=== PATIENT | male | born 1960 | race Caucasian/White ===

== ENCOUNTER 2016-10-27 13:16 | Emergency (ER) | payer OTHER ==
[~2016-10-27] VITALS: Ht 172.7 cm; Wt 88.6 kg
[~2016-10-27 13:16] MED LIST: ALLO300 PO; ATEN25 PO; METF500T4 PO
[2016-10-27 13:27] LABS: GLUCOSE,POINT OF CARE 168 MG/DL (70-110)
[2016-10-27] MEDS ORDERED: CloNIDine HCL 0.2 MG TABLET PO ONE (13:45)
[2016-10-27 13:54] VITALS: BP 153/103
[2016-10-27] MEDS ORDERED: ACETAMINOPHEN 325 MG TABLET PO ONE (14:00)
== END 2016-10-27 14:09 | disposition left against medical advice (07) ==
LOC: EMS 13:18
DX: I10 Essential (primary) hypertension (principal); E11.9 Type 2 diabetes mellitus without complications; F17.210 Nicotine dependence, cigarettes, uncomplicated
CPT/HCPCS: 82962; 93005; 99285

== ENCOUNTER 2016-12-22 03:02 | Emergency (ER) | payer OTHER ==
[~2016-12-22] VITALS: Ht 172.7 cm; Wt 72.5 kg
[~2016-12-22 03:02] MED LIST changes: -ATEN25 PO; +ATEN25TA PO
[2016-12-22] MEDS ORDERED: AMIO200T2 PO (03:21)
[2016-12-22] MEDS ORDERED: ASPI-1107 PO (03:21)
[2016-12-22] MEDS ORDERED: LISI-622 PO (03:21)
[2016-12-22] MEDS ORDERED: ATOR-2 PO (03:21)
[2016-12-22] MEDS ORDERED: ATEN50TA PO (03:21)
[2016-12-22] MEDS ORDERED: CLOP75TA32 PO (03:21)
[2016-12-22] MEDS ORDERED: CARV6.2534 PO (03:21)
[2016-12-22] MEDS ORDERED: GLIP5TAB11 PO (03:21)
[2016-12-22 03:27] LABS: GLUCOSE,POINT OF CARE 153 MG/DL (70-110)
[2016-12-22 04:43] VITALS: BP 136/81
== END 2016-12-22 04:44 | disposition home or self-care (01) ==
LOC: EMS 03:04
DX: Z76.0 Encounter for issue of repeat prescription (principal); R42 Dizziness and giddiness; E11.9 Type 2 diabetes mellitus without complications; I10 Essential (primary) hypertension; F17.210 Nicotine dependence, cigarettes, uncomplicated
CPT/HCPCS: 82962; 99283

== ENCOUNTER 2017-02-18 02:12 | Emergency (ER) | payer OTHER ==
[~2017-02-18] VITALS: Ht 175.3 cm; Wt 87.3 kg
[~2017-02-18 02:12] MED LIST changes: +AMIO200T2 PO; +ASPI-1107 PO; +ATEN50TA PO; +ATOR-2 PO; +CARV6.2534 PO; +CLOP75TA32 PO; +GLIP5TAB11 PO; +LISI-622 PO
[2017-02-18 02:28] LABS: GLUCOSE,POINT OF CARE 190 MG/DL (70-110)
[2017-02-18 03:57] VITALS: BP 145/87
== END 2017-02-18 04:00 | disposition home or self-care (01) ==
LOC: EMS 02:13
DX: Z76.0 Encounter for issue of repeat prescription (principal); F17.210 Nicotine dependence, cigarettes, uncomplicated; I10 Essential (primary) hypertension; E11.9 Type 2 diabetes mellitus without complications; I51.9 Heart disease, unspecified; F12.10 Cannabis abuse, uncomplicated; M10.9 Gout, unspecified
CPT/HCPCS: 82962; 99283; 99406

== ENCOUNTER 2017-03-05 00:27 | Emergency (ER) | payer OTHER ==
[~2017-03-05] VITALS: Ht 172.7 cm; Wt 86.4 kg
[~2017-03-05 00:27] MED LIST changes: -ASPI-1107 PO; -ATEN50TA PO
[2017-03-05 00:47] LABS: GLUCOSE,POINT OF CARE 118 MG/DL (70-110)
[2017-03-05] MEDS ORDERED: AMIODARONE HCL 200 MG TABLET PO ONE (01:30)
[2017-03-05] MEDS ORDERED: CLOPIDOGREL BISULFATE 75 MG TABLET PO ONE (01:30)
[2017-03-05 03:11] VITALS: BP 136/82
== END 2017-03-05 03:13 | disposition home or self-care (01) ==
LOC: EDUNIT# 00:27 → EMS 00:30
DX: M54.10 Radiculopathy, site unspecified (principal); R42 Dizziness and giddiness; E11.9 Type 2 diabetes mellitus without complications; I11.9 Hypertensive heart disease without heart failure; F17.210 Nicotine dependence, cigarettes, uncomplicated
CPT/HCPCS: 82962; 93005; 99283

== ENCOUNTER 2017-03-31 04:46 | Emergency (ER) | payer OTHER ==
[~2017-03-31] VITALS: Ht 172.7 cm; Wt 84.5 kg
[2017-03-31 05:03] LABS: GLUCOSE,POINT OF CARE 162 MG/DL (70-110)
[2017-03-31 06:20] VITALS: BP 146/68
== END 2017-03-31 07:03 | disposition home or self-care (01) ==
LOC: EMS 04:46
DX: J40 Bronchitis, not specified as acute or chronic (principal); F17.210 Nicotine dependence, cigarettes, uncomplicated; E11.9 Type 2 diabetes mellitus without complications; I10 Essential (primary) hypertension; Z71.6 Tobacco abuse counseling; Z79.899 Other long term (current) drug therapy
CPT/HCPCS: 82962; 99282; 99406

== ENCOUNTER 2017-05-24 23:55 | Emergency (ER) | payer OTHER ==
[~2017-05-24] VITALS: Ht 175.3 cm; Wt 86.0 kg
[2017-05-25 00:12] LABS: GLUCOSE,POINT OF CARE 167 MG/DL (70-110)
[2017-05-25 00:22] VITALS: BP 153/101
[2017-05-25] MEDS ORDERED: LISINOPRIL 10 MG TABLET PO ONE (00:45)
[2017-05-25] MEDS ORDERED: MetFORMIN HCL 500 MG TABLET PO ONE (00:45)
[2017-05-25] MEDS ORDERED: CLOPIDOGREL BISULFATE 75 MG TABLET PO ONE (00:45)
== END 2017-05-25 01:15 | disposition home or self-care (01) ==
LOC: EMS 23:56
DX: Z76.0 Encounter for issue of repeat prescription (principal); I10 Essential (primary) hypertension; E11.9 Type 2 diabetes mellitus without complications; I25.2 Old myocardial infarction; M10.9 Gout, unspecified; Z79.84 Long term (current) use of oral hypoglycemic drugs; F17.210 Nicotine dependence, cigarettes, uncomplicated
CPT/HCPCS: 82962; 99284

== ENCOUNTER 2017-06-02 20:28 | Emergency (ER) | payer OTHER | END 2017-06-02 21:00 | disposition left against medical advice (07) | LOC: EMS 20:28 | DX: Z53.21 Procedure and treatment not carried out due to patient leaving prior to being seen by health care provider (principal) ==

== ENCOUNTER 2017-07-16 03:45 | Emergency (ER) | payer OTHER ==
[~2017-07-16] VITALS: Ht 172.7 cm; Wt 84.1 kg
[2017-07-16 04:16] VITALS: BP 134/82
[2017-07-16 04:53] LABS: GLUCOSE,POINT OF CARE 131 MG/DL (70-110)
== END 2017-07-16 04:57 | disposition home or self-care (01) ==
LOC: EMS 03:46
DX: I10 Essential (primary) hypertension (principal); E11.9 Type 2 diabetes mellitus without complications; M10.9 Gout, unspecified; Z76.0 Encounter for issue of repeat prescription; F17.210 Nicotine dependence, cigarettes, uncomplicated; Z79.84 Long term (current) use of oral hypoglycemic drugs
CPT/HCPCS: 82962; 99283

== ENCOUNTER 2017-07-18 02:25 | Emergency (ER) | payer OTHER ==
[~2017-07-18] VITALS: Ht 172.7 cm; Wt 80.0 kg
[2017-07-18 03:02] VITALS: BP 157/98
[2017-07-18] MEDS ORDERED: METO-558 PO (03:02)
[2017-07-18 03:22] LABS: GLUCOSE,POINT OF CARE 125 MG/DL (70-110)
== END 2017-07-18 05:18 | disposition left against medical advice (07) ==
LOC: EMS 02:26
DX: Z76.0 Encounter for issue of repeat prescription (principal); E11.9 Type 2 diabetes mellitus without complications; I11.9 Hypertensive heart disease without heart failure; F17.210 Nicotine dependence, cigarettes, uncomplicated; Z53.21 Procedure and treatment not carried out due to patient leaving prior to being seen by health care provider
CPT/HCPCS: 82962

== ENCOUNTER 2017-07-30 02:59 | Emergency (ER) | payer OTHER ==
[~2017-07-30] VITALS: Ht 172.7 cm; Wt 82.7 kg
[~2017-07-30 02:59] MED LIST changes: -AMIO200T2 PO; -ATEN25TA PO; -CARV6.2534 PO; -CLOP75TA32 PO; -GLIP5TAB11 PO; -LISI-622 PO; -METF500T4 PO; +METF500T6 PO; +METO-558 PO
[2017-07-30 03:17] LABS: GLUCOSE,POINT OF CARE 185 MG/DL (70-110)
[2017-07-30 03:34] VITALS: BP 127/73
[2017-07-30] MEDS ORDERED: HYDROCODONE/ACETAMINOPHEN 5-325 MG TABLET PO ONE (03:45)
[2017-07-30] MEDS ORDERED: IBUPROFEN 600 MG TABLET PO ONE (03:45)
== END 2017-07-30 04:17 | disposition home or self-care (01) ==
LOC: EMS 02:59
DX: S39.012A Strain of muscle, fascia and tendon of lower back, initial encounter (principal); S86.911A Strain of unspecified muscle(s) and tendon(s) at lower leg level, right leg, initial encounter; E11.9 Type 2 diabetes mellitus without complications; I11.9 Hypertensive heart disease without heart failure; F17.210 Nicotine dependence, cigarettes, uncomplicated; X58.XXXA Exposure to other specified factors, initial encounter; Y93.89 Activity, other specified; Y92.89 Other specified places as the place of occurrence of the external cause; Y99.8 Other external cause status
CPT/HCPCS: 29530; 82962; 99283; 99406

== ENCOUNTER 2017-08-02 06:21 | Emergency (ER) | payer OTHER ==
[~2017-08-02] VITALS: Ht 172.7 cm; Wt 82.0 kg
[~2017-08-02 06:21] MED LIST changes: -METO-558 PO
[2017-08-02] MEDS ORDERED: HYDR-309 PO (06:24)
[2017-08-02] MEDS ORDERED: IBUP-2070 PO (06:24)
[2017-08-02 07:58] VITALS: BP 154/102
== END 2017-08-02 08:06 | disposition home or self-care (01) ==
LOC: EMS 06:22
DX: M25.561 Pain in right knee (principal); G89.29 Other chronic pain; E11.9 Type 2 diabetes mellitus without complications; I11.9 Hypertensive heart disease without heart failure; F17.210 Nicotine dependence, cigarettes, uncomplicated; Z76.0 Encounter for issue of repeat prescription
CPT/HCPCS: 99282; 99406

== ENCOUNTER 2018-02-08 23:51 | Emergency (ER) | payer OTHER ==
[~2018-02-08] VITALS: Ht 172.7 cm; Wt 82.7 kg
[~2018-02-08 23:51] MED LIST changes: +HYDR-309 PO; +IBUP-2070 PO; +METF-960 PO; -METF500T6 PO
[2018-02-09] MEDS ORDERED: CLOP75 PO
[2018-02-09] MEDS ORDERED: INDOMETHACIN 25 MG CAPSULE PO ONE (02:00)
[2018-02-09 02:43] VITALS: BP 145/85
[2018-02-12 10:58] LABS: GLUCOSE,POINT OF CARE 191 MG/DL (70-110)
== END 2018-02-09 02:55 | disposition home or self-care (01) ==
LOC: EMS 23:53
DX: M10.9 Gout, unspecified (principal); I10 Essential (primary) hypertension; E78.00 Pure hypercholesterolemia, unspecified; E11.9 Type 2 diabetes mellitus without complications; F17.210 Nicotine dependence, cigarettes, uncomplicated; Z79.84 Long term (current) use of oral hypoglycemic drugs

== ENCOUNTER 2018-02-12 22:28 | Emergency (ER) | payer OTHER ==
[~2018-02-12] VITALS: Ht 167.6 cm; Wt 82.7 kg
[~2018-02-12 22:28] MED LIST changes: +CLOP75 PO; -HYDR-309 PO
[2018-02-12 23:45] VITALS: BP 159/87
[2018-02-13] MEDS ORDERED: COLCHICINE 0.6 MG TABLET PO ONE (00:15)
[2018-02-13] MEDS ORDERED: IBUPROFEN 800 MG TABLET PO ONE (00:15)
== END 2018-02-13 01:14 | disposition home or self-care (01) ==
LOC: EMS 22:28
DX: M10.9 Gout, unspecified (principal); E11.65 Type 2 diabetes mellitus with hyperglycemia; F17.210 Nicotine dependence, cigarettes, uncomplicated; I25.10 Atherosclerotic heart disease of native coronary artery without angina pectoris; I11.9 Hypertensive heart disease without heart failure; E78.00 Pure hypercholesterolemia, unspecified; Z59.0 Homelessness; Z79.84 Long term (current) use of oral hypoglycemic drugs
CPT/HCPCS: 99406

== ENCOUNTER 2018-02-20 04:10 | Emergency (ER) | payer OTHER ==
[~2018-02-20] VITALS: Ht 172.7 cm; Wt 83.0 kg
[2018-02-20] MEDS ORDERED: ATOR40TA28 PO (04:27)
[2018-02-20 04:29] LABS: GLUCOSE,POINT OF CARE 176 MG/DL (70-110)
[2018-02-20 06:25] VITALS: BP 149/92
== END 2018-02-20 06:50 | disposition home or self-care (01) ==
LOC: EMS 04:12
DX: S46.911A Strain of unspecified muscle, fascia and tendon at shoulder and upper arm level, right arm, initial encounter (principal); I25.10 Atherosclerotic heart disease of native coronary artery without angina pectoris; E11.9 Type 2 diabetes mellitus without complications; I11.9 Hypertensive heart disease without heart failure; E78.00 Pure hypercholesterolemia, unspecified; I25.2 Old myocardial infarction; F17.210 Nicotine dependence, cigarettes, uncomplicated; Z79.84 Long term (current) use of oral hypoglycemic drugs; X58.XXXA Exposure to other specified factors, initial encounter; Y93.89 Activity, other specified; Y92.89 Other specified places as the place of occurrence of the external cause; Y99.8 Other external cause status

== ENCOUNTER 2018-04-10 15:42 | Emergency (ER) | payer OTHER ==
[~2018-04-10] VITALS: Ht 172.7 cm; Wt 86.4 kg
[~2018-04-10 15:42] MED LIST changes: -ALLO300 PO; -ATOR-2 PO; +ATOR40TA28 PO
[2018-04-10 15:45] VITALS: BP 151/95
[2018-04-10 15:59] LABS: GLUCOSE,POINT OF CARE 275 MG/DL (70-110)
== END 2018-04-10 17:09 | disposition left against medical advice (07) ==
LOC: EMS 15:43
DX: M25.522 Pain in left elbow (principal); Z53.21 Procedure and treatment not carried out due to patient leaving prior to being seen by health care provider

== ENCOUNTER 2018-05-13 11:26 | Emergency (ER) | payer OTHER ==
[~2018-05-13] VITALS: Ht 172.7 cm; Wt 81.8 kg
[~2018-05-13 11:26] MED LIST changes: -CLOP75 PO; +CLOP75TA17 PO
[2018-05-13 11:34] VITALS: BP 159/100
[2018-05-13 11:44] LABS: GLUCOSE,POINT OF CARE 181 MG/DL (70-110)
== END 2018-05-13 12:45 | disposition left against medical advice (07) ==
LOC: EMS 11:26
DX: Z76.0 Encounter for issue of repeat prescription (principal); I25.10 Atherosclerotic heart disease of native coronary artery without angina pectoris; E11.9 Type 2 diabetes mellitus without complications; I11.9 Hypertensive heart disease without heart failure; I25.2 Old myocardial infarction; F17.210 Nicotine dependence, cigarettes, uncomplicated; Z53.21 Procedure and treatment not carried out due to patient leaving prior to being seen by health care provider

== ENCOUNTER 2018-05-13 16:09 | Emergency (ER) | payer OTHER ==
[~2018-05-13] VITALS: Ht 172.7 cm; Wt 81.8 kg
[2018-05-13] MEDS ORDERED: ATORVASTATIN CALCIUM 40 MG TABLET PO ONE (17:00)
[2018-05-13] MEDS ORDERED: CLOPIDOGREL BISULFATE 75 MG TABLET PO ONE (17:00)
[2018-05-13 17:29] VITALS: BP 156/109
== END 2018-05-13 17:50 | disposition home or self-care (01) ==
LOC: EMS 16:11
DX: Z76.0 Encounter for issue of repeat prescription (principal); F17.210 Nicotine dependence, cigarettes, uncomplicated; I25.10 Atherosclerotic heart disease of native coronary artery without angina pectoris; E11.9 Type 2 diabetes mellitus without complications; I11.9 Hypertensive heart disease without heart failure; I25.2 Old myocardial infarction; E78.00 Pure hypercholesterolemia, unspecified; Z79.84 Long term (current) use of oral hypoglycemic drugs
CPT/HCPCS: 99406

== ENCOUNTER 2018-05-18 18:08 | Emergency (ER) | payer OTHER ==
[~2018-05-18] VITALS: Ht 170.2 cm; Wt 84.1 kg
[2018-05-18] MEDS ORDERED: ALLO100T PO (18:54)
[2018-05-18] MEDS ORDERED: CloNIDine HCL 0.2 MG TABLET PO ONE (20:30)
[2018-05-18 20:53] LABS: GLUCOSE,POINT OF CARE 218 MG/DL (70-110)
[2018-05-18 21:29] VITALS: BP 186/104
== END 2018-05-18 21:45 | disposition home or self-care (01) ==
LOC: EMS 18:11
DX: M10.9 Gout, unspecified (principal); E11.65 Type 2 diabetes mellitus with hyperglycemia; I11.9 Hypertensive heart disease without heart failure; I25.10 Atherosclerotic heart disease of native coronary artery without angina pectoris; I25.2 Old myocardial infarction; E78.00 Pure hypercholesterolemia, unspecified; F17.210 Nicotine dependence, cigarettes, uncomplicated; Z79.84 Long term (current) use of oral hypoglycemic drugs

== ENCOUNTER 2018-05-26 06:14 | Emergency (ER) | payer OTHER ==
[~2018-05-26] VITALS: Ht 172.7 cm; Wt 81.8 kg
[~2018-05-26 06:14] MED LIST changes: +ALLO100T PO; -CLOP75TA17 PO; +CLOP75TA3 PO
[2018-05-26 06:49] LABS: GLUCOSE,POINT OF CARE 184 MG/DL (70-110)
[2018-05-26] MEDS ORDERED: KETOROLAC TROMETHAMINE 60 MG/2 ML VIAL IM ONE (07:45)
[2018-05-26] MEDS ORDERED: CloNIDine HCL 0.1 MG TABLET PO ONE (08:00)
[2018-05-26 08:48] VITALS: BP 149/98
== END 2018-05-26 09:31 | disposition home or self-care (01) ==
LOC: EMS 06:14
DX: S39.012A Strain of muscle, fascia and tendon of lower back, initial encounter (principal); I10 Essential (primary) hypertension; G89.29 Other chronic pain; F17.210 Nicotine dependence, cigarettes, uncomplicated; I25.10 Atherosclerotic heart disease of native coronary artery without angina pectoris; I11.9 Hypertensive heart disease without heart failure; E11.9 Type 2 diabetes mellitus without complications; E78.00 Pure hypercholesterolemia, unspecified; I25.2 Old myocardial infarction; Z79.84 Long term (current) use of oral hypoglycemic drugs; X50.1XXA Overexertion from prolonged static or awkward postures, initial encounter; Y93.89 Activity, other specified; Y92.89 Other specified places as the place of occurrence of the external cause; Y99.8 Other external cause status
CPT/HCPCS: 82962; 96372; 99283; 99406; J1885

== ENCOUNTER 2018-06-17 01:49 | Emergency (ER) | payer OTHER ==
[~2018-06-17] VITALS: Ht 172.7 cm; Wt 87.3 kg
[2018-06-17 01:52] VITALS: BP 157/108
[2018-06-17 02:18] LABS: GLUCOSE,POINT OF CARE 145 MG/DL (70-110)
== END 2018-06-17 04:12 | disposition home or self-care (01) ==
LOC: EMS 01:49
DX: E11.9 Type 2 diabetes mellitus without complications (principal); I25.2 Old myocardial infarction; E78.00 Pure hypercholesterolemia, unspecified; I11.9 Hypertensive heart disease without heart failure; I25.10 Atherosclerotic heart disease of native coronary artery without angina pectoris; Z76.0 Encounter for issue of repeat prescription; Z79.84 Long term (current) use of oral hypoglycemic drugs; Z79.01 Long term (current) use of anticoagulants; Z79.899 Other long term (current) drug therapy

== ENCOUNTER 2019-01-01 00:46 | Emergency (ER) | payer OTHER ==
[~2019-01-01] VITALS: Ht 172.7 cm; Wt 88.6 kg
[2019-01-01 01:10] LABS: GLUCOSE,POINT OF CARE 204 MG/DL (70-110)
[2019-01-01] MEDS ORDERED: DOXYCYCLINE HYCLATE 100 MG CAPSULE PO ONE (06:30)
[2019-01-01] MEDS ORDERED: IBUPROFEN 600 MG TABLET PO ONE (06:30)
[2019-01-01 06:42] VITALS: BP 138/80
== END 2019-01-01 07:11 | disposition home or self-care (01) ==
LOC: EMS 00:46
DX: L03.012 Cellulitis of left finger (principal); L03.115 Cellulitis of right lower limb; I11.0 Hypertensive heart disease with heart failure; E11.9 Type 2 diabetes mellitus without complications; F17.210 Nicotine dependence, cigarettes, uncomplicated; Z79.899 Other long term (current) drug therapy; Z79.01 Long term (current) use of anticoagulants; Z79.84 Long term (current) use of oral hypoglycemic drugs
CPT/HCPCS: 99406

== ENCOUNTER 2019-02-18 19:32 | Emergency (ER) | payer OTHER ==
[~2019-02-18] VITALS: Ht 172.7 cm; Wt 82.7 kg
[2019-02-18 20:21] LABS: BASOPHILS % (AUTO) 1.1 % (0.0-2.0); EOSINOPHILS % (AUTO) 3.4 % (1.0-6.0); HEMATOCRIT 42.2 % (41-53); LYMPHOCYTES # (AUTO) 1.2 K/uL (1.0-4.8); LYMPHOCYTES % (AUTO) 17.4 % (22.0-44.0); MEAN CORPUSCULAR HEMOGLOBIN 29.9 pg (26.0-34.0); MEAN CORPUSCULAR HGB CONC 33.1 G/dL (31.0-37.0); MEAN CORPUSCULAR VOLUME 90 fL (80-100); MONOCYTES # (AUTO) 0.6 K/uL (0.1-1.0); MONOCYTES % (AUTO) 8.7 % (2.0-9.0); NEUTROPHILS # (AUTO) 4.6 K/uL (1.8-7.7); NEUTROPHILS % (AUTO) 69.4 % (40.0-70.0); PLATELET COUNT (AUTO) 241 K/uL (150-450); RED BLOOD CELL COUNT(AUTO) 4.67 MIL/uL (4.50-5.90)
[2019-02-18 20:38] LABS: CALCIUM, TOTAL 8.6 mg/dL (8.8-10.5); CREATININE 1.39 mg/dL (0.60-1.30); POTASSIUM 4.3 mmol/L (3.5-5.1)
[2019-02-18 20:41] LABS: PROTHROMBIN TIME 9.9 SEC (9.4-11.6)
[2019-02-18 20:43] LABS: ALBUMIN 3.3 g/dL (3.4-5.0); BILIRUBIN,TOTAL 0.2 mg/dL (0.1-1.0)
[2019-02-18] MEDS ORDERED: IOVERSOL 350 MG/ML 100 ML VIAL ONE (21:22)
[2019-02-18] MEDS ORDERED: SODIUM CHLORIDE 0.9% 100 ML ONE (21:22)
[2019-02-18] MEDS ORDERED: ALBUTEROL SULFATE HFA 90 MCG/PUFF 8 GM INHALER IH ONE (21:45)
[2019-02-18] MEDS ORDERED: AZITHROMYCIN 250 MG TABLET PO ONE (21:45)
[2019-02-18 23:08] VITALS: BP 147/80
== END 2019-02-18 23:25 | disposition home or self-care (01) ==
LOC: EMS 19:32
DX: J44.0 Chronic obstructive pulmonary disease with (acute) lower respiratory infection (principal); J20.9 Acute bronchitis, unspecified; F17.210 Nicotine dependence, cigarettes, uncomplicated; I25.10 Atherosclerotic heart disease of native coronary artery without angina pectoris; E11.9 Type 2 diabetes mellitus without complications; I11.9 Hypertensive heart disease without heart failure; I25.2 Old myocardial infarction; Z79.84 Long term (current) use of oral hypoglycemic drugs; Z59.0 Homelessness
CPT/HCPCS: 36415; 71046; 71275; 80053; 83880; 84484; 85025; 85610; 85730; 93005; 94640; 99285; 99406; J7050; Q9967; J3535

== ENCOUNTER 2019-02-22 13:41 | Emergency (ER) | payer OTHER ==
[~2019-02-22] VITALS: Ht 172.7 cm; Wt 83.2 kg
[2019-02-22] MEDS ORDERED: ATEN25TA PO (13:49)
[2019-02-22 14:01] LABS: GLUCOSE,POINT OF CARE 115 MG/DL (70-110)
[2019-02-22 15:11] VITALS: BP 147/90
== END 2019-02-22 15:14 | disposition home or self-care (01) ==
LOC: EMS 13:41
DX: I10 Essential (primary) hypertension (principal); E11.65 Type 2 diabetes mellitus with hyperglycemia; I25.10 Atherosclerotic heart disease of native coronary artery without angina pectoris; I11.9 Hypertensive heart disease without heart failure; E78.00 Pure hypercholesterolemia, unspecified; I25.2 Old myocardial infarction; F17.210 Nicotine dependence, cigarettes, uncomplicated; Z76.0 Encounter for issue of repeat prescription; Z79.84 Long term (current) use of oral hypoglycemic drugs

== ENCOUNTER 2019-03-22 10:55 | Emergency (ER) | payer OTHER ==
[~2019-03-22] VITALS: Ht 172.7 cm; Wt 82.7 kg
[~2019-03-22 10:55] MED LIST changes: +ATEN25TA PO
[2019-03-22 11:46] LABS: GLUCOSE,POINT OF CARE 189 MG/DL (70-110)
[2019-03-22] MEDS ORDERED: IBUPROFEN 800 MG TABLET PO ONE (12:45)
[2019-03-22 14:36] VITALS: BP 140/88
== END 2019-03-22 15:07 | disposition home or self-care (01) ==
LOC: EMS 10:56
DX: J02.9 Acute pharyngitis, unspecified (principal); I25.10 Atherosclerotic heart disease of native coronary artery without angina pectoris; E11.9 Type 2 diabetes mellitus without complications; I11.9 Hypertensive heart disease without heart failure; E78.00 Pure hypercholesterolemia, unspecified; I25.2 Old myocardial infarction; F17.210 Nicotine dependence, cigarettes, uncomplicated; Z79.84 Long term (current) use of oral hypoglycemic drugs
CPT/HCPCS: 87430

== ENCOUNTER 2019-03-23 15:47 | Inpatient (IN) | payer OTHER ==
[~2019-03-23] VITALS: Ht 175.3 cm; Wt 83.4 kg
[~2019-03-23 15:47] MED LIST changes: -ALLO100T PO
[2019-03-23 16:14] LABS: GLUCOSE,POINT OF CARE 126 MG/DL (70-110)
[2019-03-23] MEDS ORDERED: SODIUM CHLORIDE 0.9% 2,450 ML IV ONE (19:46)
[2019-03-23] MEDS ORDERED: KETOROLAC TROMETHAMINE 30 MG/ML VIAL IVP ONE (20:00)
[2019-03-23] MEDS ORDERED: 0.9% SODIUM CHLORIDE 10 ML SYRINGE IVP PRN (20:00)
[2019-03-23] MEDS ORDERED: ONDANSETRON HCL 4 MG/2 ML VIAL IVP ONE ×2 (20:00→23:00)
[2019-03-23 20:10] LABS: BASOPHILS % (AUTO) 0.4 % (0.0-2.0); EOSINOPHILS % (AUTO) 0 % (1.0-6.0); HEMATOCRIT 44.5 % (41-53); LYMPHOCYTES # (AUTO) 0.8 K/uL (1.0-4.8); LYMPHOCYTES % (AUTO) 5.5 % (22.0-44.0); MEAN CORPUSCULAR HEMOGLOBIN 30.2 pg (26.0-34.0); MEAN CORPUSCULAR HGB CONC 33.7 G/dL (31.0-37.0); MEAN CORPUSCULAR VOLUME 90 fL (80-100); MONOCYTES # (AUTO) 1.1 K/uL (0.1-1.0); MONOCYTES % (AUTO) 7.4 % (2.0-9.0); NEUTROPHILS # (AUTO) 13.3 K/uL (1.8-7.7); PLATELET COUNT (AUTO) 225 K/uL (150-450); RED BLOOD CELL COUNT(AUTO) 4.98 MIL/uL (4.50-5.90); RED CELL DISTRIBUTION WIDTH 13.8 % (11.5-14.5)
[2019-03-23 20:12] LABS: NEUTROPHILS % (AUTO) 86.7 % (40.0-70.0)
[2019-03-23 20:16] LABS: ANION GAP 10 mmol/L (8-16); CALCIUM, TOTAL 9.1 mg/dL (8.8-10.5); CARBON DIOXIDE 27 mmol/L (22-29); CHLORIDE 100 mmol/L (98-107); CREATININE 1.19 mg/dL (0.60-1.30); GLOMERULAR FILTR. RATE CALC > 60 mL/min (>60); GLUCOSE,RANDOM 131 mg/dL (70-110); SODIUM SERUM 137 mmol/L (136-145); UREA NITROGEN, BLOOD 17 mg/dL (7-18)
[2019-03-23 20:22] LABS: ALANINE AMINOTRANSFERASE 24 U/L (12-78); ALBUMIN 3.5 g/dL (3.4-5.0); ALKALINE PHOSPHATASE 84 U/L (46-116); ASPARTATE AMINOTRANSFERASE 16 U/L (15-37); BILIRUBIN,TOTAL 0.8 mg/dL (0.1-1.0); TOTAL PROTEIN, SERUM 7.8 g/dL (6.4-8.2)
[2019-03-23 20:25] LABS: LACTIC ACID 0.8 mmol/L (0.4-2.0)
[2019-03-23] MEDS ORDERED: MAGNESIUM SULFATE 2 GM/WATER 50 ML IV ONE (22:15)
[2019-03-23] MEDS ORDERED: ACETAMINOPHEN 500 MG TABLET PO ONE (22:15)
[2019-03-23] MEDS ORDERED: MethylPREDNISolone SOD SUCC 125 MG/2 ML VIAL IVP ONE (22:15)
[2019-03-23] MEDS ORDERED: BENZOCAINE/MENTHOL LOZENGE PO PRN (23:45)
[2019-03-23] MEDS ORDERED: SODIUM CHLORIDE 0.9% 1,000 ML IV ONE (23:45)
[2019-03-23] MEDS ORDERED: ACETAMINOPHEN 325 MG TABLET PO PRN (23:45)
[2019-03-23] MEDS ORDERED: MORPHINE SULFATE 4 MG/ML SYRINGE IVP PRN (23:45)
[2019-03-23] MEDS ORDERED: ONDANSETRON HCL 4 MG/2 ML VIAL IVP PRN (23:45)
[2019-03-24 01:15] VITALS: BP 172/101
[2019-03-24 04:00] VITALS: BP 164/84
[2019-03-24] MEDS ORDERED: INFLUENZA VIRUS VACCINE QVS 2019-20 (3YR+)/PF 60 MCG/0.5 ML SYRINGE IM ONE (04:30)
[2019-03-24] MEDS ORDERED: IBUPROFEN 600 MG TABLET PO PRN (07:15)
[2019-03-24 08:00] VITALS: BP 170/100
[2019-03-24] MEDS ORDERED: ATENOLOL 25 MG TABLET PO ONE (08:30)
[2019-03-24] MEDS ORDERED: CLOPIDOGREL BISULFATE 75 MG TABLET PO SCH (09:00)
[2019-03-24] MEDS ORDERED: IPRATROPIUM BROMIDE 0.5 MG/2.5 ML NEB SOLUTION NEB PRN (10:15)
[2019-03-24] MEDS ORDERED: MAGNESIUM HYDROXIDE SUSPENSION 30 ML UDCUP PO PRN (10:15)
[2019-03-24] MEDS ORDERED: ALBUTEROL SULFATE 2.5 MG/0.5 ML NEB SOLUTION NEB PRN (10:15)
[2019-03-24] MEDS ORDERED: ACETAMINOPHEN 325 MG TABLET PO PRN (10:15)
[2019-03-24] MEDS ORDERED: BISACODYL 10 MG RECTAL RECTAL SUPPOSITORY PR PRN (10:15)
[2019-03-24] MEDS ORDERED: ZOLPIDEM TARTRATE 5 MG TABLET PO PRN (10:15)
[2019-03-24] MEDS ORDERED: ONDANSETRON HCL 4 MG/2 ML VIAL IVP PRN (10:15)
[2019-03-24 10:18] LABS: BASOPHILS % (AUTO) 0.1 % (0.0-2.0); EOSINOPHILS % (AUTO) 0.1 % (1.0-6.0); HEMATOCRIT 44.4 % (41-53); HEMOGLOBIN 14.7 g/dL (13.5-17.5); LYMPHOCYTES # (AUTO) 0.5 K/uL (1.0-4.8); LYMPHOCYTES % (AUTO) 3.6 % (22.0-44.0); MEAN CORPUSCULAR HEMOGLOBIN 29.9 pg (26.0-34.0); MEAN CORPUSCULAR VOLUME 90 fL (80-100); MONOCYTES # (AUTO) 0.1 K/uL (0.1-1.0); MONOCYTES % (AUTO) 1.1 % (2.0-9.0); PLATELET COUNT (AUTO) 217 K/uL (150-450); RED BLOOD CELL COUNT(AUTO) 4.91 MIL/uL (4.50-5.90); RED CELL DISTRIBUTION WIDTH 14.1 % (11.5-14.5)
[2019-03-24 10:21] LABS: NEUTROPHILS % (AUTO) 95.1 % (40.0-70.0)
[2019-03-24 10:28] LABS: CALCIUM, TOTAL 8.6 mg/dL (8.8-10.5); CREATININE 1.51 mg/dL (0.60-1.30); POTASSIUM 4.6 mmol/L (3.5-5.1)
[2019-03-24 10:34] LABS: ALBUMIN 2.9 g/dL (3.4-5.0); BILIRUBIN,TOTAL 0.4 mg/dL (0.1-1.0); TOTAL PROTEIN, SERUM 7.1 g/dL (6.4-8.2)
[2019-03-24] MEDS ORDERED: DEXTROSE 50%-WATER 25 GM/50 ML SYRINGE IVP PRN (10:45)
[2019-03-24] MEDS ORDERED: SODIUM CHLORIDE 0.9% 250 ML IV ONE (10:54)
[2019-03-24] MEDS ORDERED: ALBUTEROL SULFATE 2.5 MG/0.5 ML NEB SOLUTION NEB SCH (11:00)
[2019-03-24] MEDS ORDERED: IPRATROPIUM BROMIDE 0.5 MG/2.5 ML NEB SOLUTION NEB SCH (11:00)
[2019-03-24] MEDS: PIPERACILLIN/TAZO 3.375 GM/D5W 50 ML IV SCH ×2 (11:34→17:18)
[2019-03-24] MEDS: INSULIN LISPRO 100 UNITS/ML SQ PRN ×3 (11:35→20:34)
[2019-03-24] MEDS: MethylPREDNISolone SOD SUCC 125 MG/2 ML VIAL IVP SCH ×2 (11:36→17:18)
[2019-03-24 12:00] VITALS: BP 156/90
[2019-03-24 12:29] LABS: APPEARANCE,URINE CLEAR (CLEAR); BILIRUBIN,URINE NEGATIVE (NEGATIVE); GLUCOSE, URINE (UA) >=1000 mg/dL (NEGATIVE); KETONES,URINE NEGATIVE (NEGATIVE); LEUKOCYTE ESTERASE ,URINE NEGATIVE (NEGATIVE); NITRATE,URINE NEGATIVE (NEGATIVE); OCCULT BLOOD,URINE NEGATIVE (NEGATIVE); PH,URINE 5.5 (5.0-8.0); PROTEIN,URINE NEGATIVE (NEGATIVE); UROBILINOGEN,URINE 0.2 mg/dL (<=1.0)
[2019-03-24 12:34] LABS: AMPHET/METH SCREEN,URINE POSITIVE (NEGATIVE); BARBITURATE SCREEN, URINE NEGATIVE (NEGATIVE); BENZODIAZEPINES SCREEN,URINE NEGATIVE (NEGATIVE); CANNABINOID SCREEN,URINE NEGATIVE (NEGATIVE); COCAINE SCREEN,URINE NEGATIVE (NEGATIVE); METHADONE SCREEN, URINE NEGATIVE (NEGATIVE); OPIATE SCREEN,URINE NEGATIVE (NEGATIVE)
[2019-03-24 12:35] LABS: PHENCYCLIDINE SCREEN,URINE NEGATIVE (NEGATIVE)
[2019-03-24 12:39] LABS: BACTERIA,URINE None Seen /HPF (None Seen); RBC,URINE None Seen /HPF (0-2); WBC,URINE None Seen /HPF (0-5)
[2019-03-24 12:40] LABS: GLUCOSE,POINT OF CARE 297 MG/DL (70-110)
[2019-03-24 16:01] VITALS: BP 135/70
[2019-03-24] MEDS: HEPARIN SODIUM,PORCINE 5,000 UNITS/ML VIAL SQ SCH (17:18)
[2019-03-24 20:00] VITALS: BP 129/64
[2019-03-24] MEDS: ATORVASTATIN CALCIUM 40 MG TABLET PO SCH (20:41)
[2019-03-24] MEDS: FAMOTIDINE 10 MG/ML 2 ML VIAL IVP SCH (20:41)
[2019-03-24] MEDS: DOCUSATE SODIUM 100 MG CAPSULE PO SCH (20:42)
[2019-03-24] MEDS: ATENOLOL 25 MG TABLET PO SCH (20:42)
[2019-03-24] MEDS ORDERED: ATENOLOL 25 MG TABLET PO SCH (21:00)
[2019-03-24] MEDS ORDERED: ATORVASTATIN CALCIUM 40 MG TABLET PO SCH (21:00)
[2019-03-25] VITALS: BP 138/80
[2019-03-25] MEDS: PIPERACILLIN/TAZO 3.375 GM/D5W 50 ML IV SCH ×5 (01:22→20:38)
[2019-03-25] MEDS: MethylPREDNISolone SOD SUCC 125 MG/2 ML VIAL IVP SCH ×5 (01:22→23:17)
[2019-03-25] MEDS: HEPARIN SODIUM,PORCINE 5,000 UNITS/ML VIAL SQ SCH ×4 (01:23→23:17)
[2019-03-25 04:00] VITALS: BP 146/77
[2019-03-25] MEDS ORDERED: SODIUM CHLORIDE 0.9% 250 ML IV ONE (04:55)
[2019-03-25] MEDS: INSULIN LISPRO 100 UNITS/ML SQ PRN ×4 (06:45→20:59)
[2019-03-25 07:48] LABS: GLUCOSE,POINT OF CARE 295 MG/DL (70-110)
[2019-03-25 07:48] LABS: GLUCOSE,POINT OF CARE 288 MG/DL (70-110)
[2019-03-25 07:48] LABS: GLUCOSE,POINT OF CARE 255 MG/DL (70-110)
[2019-03-25] MEDS: FAMOTIDINE 10 MG/ML 2 ML VIAL IVP SCH ×2 (08:27→22:41)
[2019-03-25] MEDS: CLOPIDOGREL BISULFATE 75 MG TABLET PO SCH (08:27)
[2019-03-25] MEDS: DOCUSATE SODIUM 100 MG CAPSULE PO SCH ×2 (08:27→20:55)
[2019-03-25 08:33] VITALS: BP 138/84
[2019-03-25 08:49] LABS: BASOPHILS % (AUTO) 0.2 % (0.0-2.0); EOSINOPHILS % (AUTO) 0.1 % (1.0-6.0); HEMOGLOBIN 13.2 g/dL (13.5-17.5); LYMPHOCYTES # (AUTO) 0.4 K/uL (1.0-4.8); LYMPHOCYTES % (AUTO) 2.3 % (22.0-44.0); MEAN CORPUSCULAR HEMOGLOBIN 30.3 pg (26.0-34.0); MEAN CORPUSCULAR HGB CONC 33.8 G/dL (31.0-37.0); MEAN CORPUSCULAR VOLUME 90 fL (80-100); MONOCYTES # (AUTO) 0.3 K/uL (0.1-1.0); MONOCYTES % (AUTO) 1.6 % (2.0-9.0); NEUTROPHILS # (AUTO) 17.5 K/uL (1.8-7.7); NEUTROPHILS % (AUTO) 95.8 % (40.0-70.0); PLATELET COUNT (AUTO) 231 K/uL (150-450); RED BLOOD CELL COUNT(AUTO) 4.35 MIL/uL (4.50-5.90)
[2019-03-25] MEDS: IPRATROPIUM BROMIDE 0.5 MG/2.5 ML NEB SOLUTION NEB SCH ×3 (08:57→19:54)
[2019-03-25] MEDS: ALBUTEROL SULFATE 2.5 MG/0.5 ML NEB SOLUTION NEB SCH ×3 (08:57→19:55)
[2019-03-25 09:08] LABS: ALBUMIN 2.5 g/dL (3.4-5.0); BILIRUBIN,TOTAL 0.3 mg/dL (0.1-1.0); CALCIUM, TOTAL 8.4 mg/dL (8.8-10.5); CREATININE 1.34 mg/dL (0.60-1.30); TOTAL PROTEIN, SERUM 6.3 g/dL (6.4-8.2)
[2019-03-25 11:07] VITALS: BP 140/77
[2019-03-25 16:16] VITALS: BP 165/95
[2019-03-25 20:50] VITALS: BP 164/92
[2019-03-25] MEDS: ATORVASTATIN CALCIUM 40 MG TABLET PO SCH (20:54)
[2019-03-25] MEDS: ATENOLOL 25 MG TABLET PO SCH (20:55)
[2019-03-25] MEDS ORDERED: HEPARIN SODIUM,PORCINE 5,000 UNITS/ML VIAL ONE (23:12)
[2019-03-25] MEDS ORDERED: MethylPREDNISolone SOD SUCC 125 MG/2 ML VIAL ONE (23:15)
[2019-03-26] MEDS: PIPERACILLIN/TAZO 3.375 GM/D5W 50 ML IV SCH ×4 (01:19→19:30)
[2019-03-26] MEDS: INSULIN LISPRO 100 UNITS/ML SQ PRN ×3 (05:07→19:56)
[2019-03-26] MEDS: MethylPREDNISolone SOD SUCC 125 MG/2 ML VIAL IVP SCH ×4 (05:11→23:14)
[2019-03-26 05:17] LABS: BASOPHILS % (AUTO) 0.1 % (0.0-2.0); EOSINOPHILS % (AUTO) 0 % (1.0-6.0); HEMATOCRIT 40.5 % (41-53); HEMOGLOBIN 13.7 g/dL (13.5-17.5); LYMPHOCYTES # (AUTO) 0.4 K/uL (1.0-4.8); LYMPHOCYTES % (AUTO) 2.2 % (22.0-44.0); MEAN CORPUSCULAR HGB CONC 33.8 G/dL (31.0-37.0); MEAN CORPUSCULAR VOLUME 89 fL (80-100); MONOCYTES # (AUTO) 0.3 K/uL (0.1-1.0); MONOCYTES % (AUTO) 1.9 % (2.0-9.0); NEUTROPHILS # (AUTO) 15.6 K/uL (1.8-7.7); PLATELET COUNT (AUTO) 244 K/uL (150-450); RED BLOOD CELL COUNT(AUTO) 4.56 MIL/uL (4.50-5.90); RED CELL DISTRIBUTION WIDTH 13.8 % (11.5-14.5)
[2019-03-26 05:18] LABS: NEUTROPHILS % (AUTO) 95.8 % (40.0-70.0)
[2019-03-26 05:21] VITALS: BP 150/78
[2019-03-26 05:41] LABS: GLUCOMETER DEV NAME(LOC) 5S.2A; GLUCOSE,POINT OF CARE 238 MG/DL (70-110)
[2019-03-26 05:41] LABS: GLUCOMETER DEV NAME(LOC) 5S.2A; GLUCOSE,POINT OF CARE 297 MG/DL (70-110)
[2019-03-26 05:53] LABS: ALANINE AMINOTRANSFERASE 33 U/L (12-78); ALBUMIN 2.6 g/dL (3.4-5.0); ALKALINE PHOSPHATASE 85 U/L (46-116); ANION GAP 6 mmol/L (8-16); ASPARTATE AMINOTRANSFERASE 20 U/L (15-37); BILIRUBIN,TOTAL 0.3 mg/dL (0.1-1.0); CALCIUM, TOTAL 8.6 mg/dL (8.8-10.5); CARBON DIOXIDE 30 mmol/L (22-29); CHLORIDE 104 mmol/L (98-107); CREATININE 1.22 mg/dL (0.60-1.30); GLOMERULAR FILTR. RATE CALC > 60 mL/min (>60); GLUCOSE,RANDOM 256 mg/dL (70-110); POTASSIUM 3.8 mmol/L (3.5-5.1); SODIUM SERUM 140 mmol/L (136-145); TOTAL PROTEIN, SERUM 6.5 g/dL (6.4-8.2); UREA NITROGEN, BLOOD 22 mg/dL (7-18)
[2019-03-26 07:25] LABS: GLUCOSE,POINT OF CARE 246 MG/DL (70-110)
[2019-03-26] MEDS: FAMOTIDINE 10 MG/ML 2 ML VIAL IVP SCH ×2 (07:56→20:00)
[2019-03-26] MEDS: DOCUSATE SODIUM 100 MG CAPSULE PO SCH ×2 (07:56→19:27)
[2019-03-26] MEDS: CLOPIDOGREL BISULFATE 75 MG TABLET PO SCH (07:56)
[2019-03-26] MEDS: HEPARIN SODIUM,PORCINE 5,000 UNITS/ML VIAL SQ SCH ×3 (07:56→23:16)
[2019-03-26 08:00] VITALS: BP 165/85
[2019-03-26] MEDS: ALBUTEROL SULFATE 2.5 MG/0.5 ML NEB SOLUTION NEB SCH ×3 (08:00→19:42)
[2019-03-26] MEDS: IPRATROPIUM BROMIDE 0.5 MG/2.5 ML NEB SOLUTION NEB SCH ×3 (08:00→19:42)
[2019-03-26 12:00] VITALS: BP 179/89
[2019-03-26 16:00] VITALS: BP 174/92
[2019-03-26 17:30] LABS: GLUCOSE,POINT OF CARE 242 MG/DL (70-110)
[2019-03-26] MEDS ORDERED: INSULIN LISPRO 100 UNITS/ML SQ ONE (17:45)
[2019-03-26 18:34] LABS: HEMOGLOBIN A1C 8.1 % (4.5-6.2)
[2019-03-26] MEDS: INSULIN GLARGINE,HUM.REC.ANLOG 100 UNITS/ML SQ SCH (19:55)
[2019-03-26 20:00] VITALS: BP 127/83
[2019-03-26] MEDS: ATENOLOL 25 MG TABLET PO SCH (20:00)
[2019-03-26] MEDS: ATORVASTATIN CALCIUM 40 MG TABLET PO SCH (20:00)
[2019-03-26 20:27] LABS: GLUCOSE,POINT OF CARE 355 MG/DL (70-110)
[2019-03-26 21:29] LABS: GLUCOMETER DEV NAME(LOC) 5S.1; GLUCOSE,POINT OF CARE 310 MG/DL (70-110)
[2019-03-27] VITALS: BP 158/65
[2019-03-27] MEDS: PIPERACILLIN/TAZO 3.375 GM/D5W 50 ML IV SCH ×4 (01:10→21:05)
[2019-03-27 04:00] VITALS: BP 158/66
[2019-03-27 05:37] LABS: GLUCOSE,POINT OF CARE 412 MG/DL (70-110)
[2019-03-27 05:37] LABS: GLUCOSE,POINT OF CARE 246 MG/DL (70-110)
[2019-03-27] MEDS: INSULIN LISPRO 100 UNITS/ML SQ PRN ×4 (05:59→21:06)
[2019-03-27] MEDS: MethylPREDNISolone SOD SUCC 125 MG/2 ML VIAL IVP SCH ×2 (06:00→11:24)
[2019-03-27 06:06] LABS: BASOPHILS % (AUTO) 0.1 % (0.0-2.0); EOSINOPHILS % (AUTO) 0 % (1.0-6.0); HEMATOCRIT 42.6 % (41-53); HEMOGLOBIN 14.5 g/dL (13.5-17.5); LYMPHOCYTES # (AUTO) 0.4 K/uL (1.0-4.8); LYMPHOCYTES % (AUTO) 2.8 % (22.0-44.0); MEAN CORPUSCULAR VOLUME 88 fL (80-100); MONOCYTES # (AUTO) 0.3 K/uL (0.1-1.0); MONOCYTES % (AUTO) 2.2 % (2.0-9.0); PLATELET COUNT (AUTO) 256 K/uL (150-450); RED BLOOD CELL COUNT(AUTO) 4.82 MIL/uL (4.50-5.90); RED CELL DISTRIBUTION WIDTH 13.8 % (11.5-14.5)
[2019-03-27 06:11] LABS: NEUTROPHILS % (AUTO) 94.9 % (40.0-70.0)
[2019-03-27 06:28] LABS: ALBUMIN 2.7 g/dL (3.4-5.0); BILIRUBIN,TOTAL 0.2 mg/dL (0.1-1.0); CALCIUM, TOTAL 8.7 mg/dL (8.8-10.5); CREATININE 1.29 mg/dL (0.60-1.30); POTASSIUM 3.7 mmol/L (3.5-5.1); TOTAL PROTEIN, SERUM 6.6 g/dL (6.4-8.2)
[2019-03-27] MEDS: ALBUTEROL SULFATE 2.5 MG/0.5 ML NEB SOLUTION NEB SCH ×3 (07:39→20:00)
[2019-03-27] MEDS: IPRATROPIUM BROMIDE 0.5 MG/2.5 ML NEB SOLUTION NEB SCH ×3 (07:39→20:00)
[2019-03-27] MEDS: HEPARIN SODIUM,PORCINE 5,000 UNITS/ML VIAL SQ SCH ×3 (07:54→23:49)
[2019-03-27] MEDS: FAMOTIDINE 10 MG/ML 2 ML VIAL IVP SCH ×2 (07:55→21:05)
[2019-03-27] MEDS: CLOPIDOGREL BISULFATE 75 MG TABLET PO SCH (07:55)
[2019-03-27] MEDS: DOCUSATE SODIUM 100 MG CAPSULE PO SCH ×2 (07:55→21:05)
[2019-03-27 08:00] VITALS: BP 151/78
[2019-03-27 12:00] VITALS: BP 175/59
[2019-03-27 13:19] LABS: GLUCOSE,POINT OF CARE 305 MG/DL (70-110)
[2019-03-27] MEDS ORDERED: PRED20TA3 PO (13:20)
[2019-03-27] MEDS ORDERED: INSLAN SQ (13:20)
[2019-03-27] MEDS ORDERED: AMOX1TAB16 PO (13:20)
[2019-03-27 15:19] VITALS: BP 137/83
[2019-03-27] MEDS: MethylPREDNISolone SOD SUCC 40 MG/ML VIAL IVP SCH ×2 (17:17→23:49)
[2019-03-27 19:30] VITALS: BP 148/86
[2019-03-27] MEDS ORDERED: ATENOLOL 25 MG TABLET PO SCH (21:00)
[2019-03-27] MEDS ORDERED: SODIUM CHLORIDE 0.9% 500 ML IV ONE (21:03)
[2019-03-27] MEDS: ATORVASTATIN CALCIUM 40 MG TABLET PO SCH (21:05)
[2019-03-27] MEDS: INSULIN GLARGINE,HUM.REC.ANLOG 100 UNITS/ML SQ SCH (21:06)
[2019-03-28] MEDS: PIPERACILLIN/TAZO 3.375 GM/D5W 50 ML IV SCH ×3 (02:28→13:46)
[2019-03-28] MEDS: MethylPREDNISolone SOD SUCC 40 MG/ML VIAL IVP SCH ×2 (05:58→11:30)
[2019-03-28] MEDS: INSULIN LISPRO 100 UNITS/ML SQ PRN ×2 (05:59→11:29)
[2019-03-28 06:08] LABS: BASOPHILS % (AUTO) 0.2 % (0.0-2.0); EOSINOPHILS % (AUTO) 0.2 % (1.0-6.0); HEMATOCRIT 43.4 % (41-53); HEMOGLOBIN 14.4 g/dL (13.5-17.5); LYMPHOCYTES # (AUTO) 0.4 K/uL (1.0-4.8); LYMPHOCYTES % (AUTO) 3.6 % (22.0-44.0); MEAN CORPUSCULAR HEMOGLOBIN 29.3 pg (26.0-34.0); MEAN CORPUSCULAR HGB CONC 33.1 G/dL (31.0-37.0); MEAN CORPUSCULAR VOLUME 88 fL (80-100); MONOCYTES # (AUTO) 0.5 K/uL (0.1-1.0); MONOCYTES % (AUTO) 4.3 % (2.0-9.0); NEUTROPHILS # (AUTO) 10.3 K/uL (1.8-7.7); PLATELET COUNT (AUTO) 248 K/uL (150-450); RED BLOOD CELL COUNT(AUTO) 4.91 MIL/uL (4.50-5.90); RED CELL DISTRIBUTION WIDTH 13.6 % (11.5-14.5)
[2019-03-28 06:39] LABS: ALANINE AMINOTRANSFERASE 32 U/L (12-78); ALBUMIN 2.6 g/dL (3.4-5.0); ALKALINE PHOSPHATASE 102 U/L (46-116); ANION GAP 6 mmol/L (8-16); ASPARTATE AMINOTRANSFERASE 12 U/L (15-37); BILIRUBIN,TOTAL 0.2 mg/dL (0.1-1.0); CALCIUM, TOTAL 8.4 mg/dL (8.8-10.5); CARBON DIOXIDE 29 mmol/L (22-29); CHLORIDE 100 mmol/L (98-107); CREATININE 1.19 mg/dL (0.60-1.30); GLOMERULAR FILTR. RATE CALC > 60 mL/min (>60); GLUCOSE,RANDOM 325 mg/dL (70-110); POTASSIUM 3.9 mmol/L (3.5-5.1); SODIUM SERUM 135 mmol/L (136-145); TOTAL PROTEIN, SERUM 6.2 g/dL (6.4-8.2); UREA NITROGEN, BLOOD 25 mg/dL (7-18)
[2019-03-28 06:52] LABS: NEUTROPHILS % (AUTO) 91.7 % (40.0-70.0)
[2019-03-28 07:25] VITALS: BP 159/102
[2019-03-28] MEDS: ALBUTEROL SULFATE 2.5 MG/0.5 ML NEB SOLUTION NEB SCH ×2 (08:00→14:44)
[2019-03-28] MEDS: IPRATROPIUM BROMIDE 0.5 MG/2.5 ML NEB SOLUTION NEB SCH ×2 (08:00→14:44)
[2019-03-28] MEDS: FAMOTIDINE 10 MG/ML 2 ML VIAL IVP SCH (08:15)
[2019-03-28] MEDS: CLOPIDOGREL BISULFATE 75 MG TABLET PO SCH (08:15)
[2019-03-28] MEDS: HEPARIN SODIUM,PORCINE 5,000 UNITS/ML VIAL SQ SCH ×2 (08:15→15:36)
[2019-03-28] MEDS: DOCUSATE SODIUM 100 MG CAPSULE PO SCH (09:29)
[2019-03-28 10:22] LABS: GLUCOMETER DEV NAME(LOC) 6N.2; GLUCOSE,POINT OF CARE 346 MG/DL (70-110)
[2019-03-28 10:22] LABS: GLUCOMETER DEV NAME(LOC) 6N.2; GLUCOSE,POINT OF CARE 432 MG/DL (70-110)
[2019-03-28 10:22] LABS: GLUCOMETER DEV NAME(LOC) 6N.2; GLUCOSE,POINT OF CARE 309 MG/DL (70-110)
[2019-03-28 11:01] VITALS: BP 154/95
[2019-03-28 12:18] LABS: GLUCOMETER DEV NAME(LOC) 6N.2; GLUCOSE,POINT OF CARE 365 MG/DL (70-110)
[2019-03-28 15:10] VITALS: BP 152/90
[2019-03-28] MEDS ORDERED: CLOP75TA3 PO (16:09)
[2019-03-28] MEDS ORDERED: PRED20TA3 PO (16:09)
[2019-03-28] MEDS ORDERED: METF-960 PO (16:09)
[2019-03-28] MEDS ORDERED: ATEN25TA PO (16:09)
[2019-03-28] MEDS ORDERED: AMOX1TAB16 PO (16:09)
[2019-03-28] MEDS ORDERED: ATOR40TA28 PO (16:09)
[2019-03-28] MEDS ORDERED: ALBU8HFA PO (16:11)
== END 2019-03-28 16:32 | disposition home or self-care (01) | DRG 115 ==
LOC: EMS 15:50 → ICU 03-24 00:42 → 5S 03-25 07:15 → ICU 03-25 21:53 → 4E 03-27 13:40
PROVIDERS: ADMIT Hospitalist; ATTEND Hospitalist
DX: J38.7 Other diseases of larynx (principal); R65.10 Systemic inflammatory response syndrome (SIRS) of non-infectious origin without acute organ dysfunction; E11.9 Type 2 diabetes mellitus without complications; E78.00 Pure hypercholesterolemia, unspecified; E78.5 Hyperlipidemia, unspecified; E86.0 Dehydration; J02.9 Acute pharyngitis, unspecified; I25.10 Atherosclerotic heart disease of native coronary artery without angina pectoris; J20.9 Acute bronchitis, unspecified; L80 Vitiligo; F17.200 Nicotine dependence, unspecified, uncomplicated; I10 Essential (primary) hypertension; J44.9 Chronic obstructive pulmonary disease, unspecified; Z95.5 Presence of coronary angioplasty implant and graft
CPT/HCPCS: 70490; 83036; 83605; 87040; 87081; 90686; 93005; 94640; G0378; G0480; J1644; J1815; J1885; J2405; J2543; J2920; J2930; J3475; J3490; J7030; J7040; J7050

== ENCOUNTER 2019-08-24 05:44 | Emergency (ER) | payer OTHER ==
[~2019-08-24] VITALS: Ht 175.3 cm; Wt 81.8 kg
[~2019-08-24 05:44] MED LIST changes: +ALBU8HFA PO; +AMOX1TAB16 PO; +ATEN-73 PO; -ATEN25TA PO; +INSLAN SQ; +PRED20TA3 PO
[2019-08-24] MEDS ORDERED: FLUORESCEIN SODIUM 1 MG STRIP ONE (07:04)
[2019-08-24] MEDS ORDERED: PROPARACAINE HCL 0.5% 15 ML OPHTHALMIC SOLUTION OD ONE (07:15)
[2019-08-24] MEDS ORDERED: NEOMYCIN/BACITRACIN/POLYMYXIN B 3.5 GM OPHTHALMIC OINTMENT OD ONE (07:15)
[2019-08-24 07:50] VITALS: BP 142/100
== END 2019-08-24 08:46 | disposition home or self-care (01) ==
LOC: EMS 05:45
DX: S05.01XA Injury of conjunctiva and corneal abrasion without foreign body, right eye, initial encounter (principal); I25.10 Atherosclerotic heart disease of native coronary artery without angina pectoris; E11.9 Type 2 diabetes mellitus without complications; I11.9 Hypertensive heart disease without heart failure; I25.2 Old myocardial infarction; F17.210 Nicotine dependence, cigarettes, uncomplicated; Z79.84 Long term (current) use of oral hypoglycemic drugs; Z79.4 Long term (current) use of insulin; W22.8XXA Striking against or struck by other objects, initial encounter; Y93.89 Activity, other specified; Y92.89 Other specified places as the place of occurrence of the external cause; Y99.8 Other external cause status

== ENCOUNTER 2019-11-24 16:35 | Emergency (ER) | payer OTHER ==
[~2019-11-24] VITALS: Ht 175.3 cm; Wt 75.0 kg
[~2019-11-24 16:35] MED LIST changes: -AMOX1TAB16 PO; +CLOP-31 PO; -CLOP75TA3 PO
[2019-11-24 16:51] VITALS: BP 149/77
[2019-11-24] MEDS ORDERED: FLUORESCEIN SODIUM 1 MG STRIP OU ONE (17:15)
[2019-11-24] MEDS ORDERED: PROPARACAINE HCL 0.5% 15 ML OPHTHALMIC SOLUTION OU ONE (17:15)
[2019-11-24] MEDS ORDERED: CIPROFLOXACIN HCL 0.3% 3.5 GM OPHTHALMIC OINTMENT OD ONE (18:45)
== END 2019-11-24 19:19 | disposition home or self-care (01) ==
LOC: EMS 16:35
DX: S05.01XA Injury of conjunctiva and corneal abrasion without foreign body, right eye, initial encounter (principal); I25.10 Atherosclerotic heart disease of native coronary artery without angina pectoris; E11.9 Type 2 diabetes mellitus without complications; I11.9 Hypertensive heart disease without heart failure; E78.00 Pure hypercholesterolemia, unspecified; I25.2 Old myocardial infarction; F17.210 Nicotine dependence, cigarettes, uncomplicated; Z79.4 Long term (current) use of insulin; Z79.84 Long term (current) use of oral hypoglycemic drugs; X58.XXXA Exposure to other specified factors, initial encounter; Y93.55 Activity, bike riding; Y92.89 Other specified places as the place of occurrence of the external cause; Y99.8 Other external cause status

== ENCOUNTER 2020-05-27 14:05 | Emergency (ER) | payer OTHER ==
[~2020-05-27] VITALS: Ht 172.7 cm; Wt 84.1 kg
[~2020-05-27 14:05] MED LIST changes: -CLOP-31 PO; +CLOP75TA60 PO
[2020-05-27 14:28] LABS: GLUCOSE,POINT OF CARE 273 MG/DL (70-110)
[2020-05-27 15:15] VITALS: BP 152/86
== END 2020-05-27 15:29 | disposition home or self-care (01) ==
LOC: EMS 14:11
DX: M25.511 Pain in right shoulder (principal); I25.10 Atherosclerotic heart disease of native coronary artery without angina pectoris; I11.9 Hypertensive heart disease without heart failure; I25.2 Old myocardial infarction; E11.9 Type 2 diabetes mellitus without complications; F17.210 Nicotine dependence, cigarettes, uncomplicated; Z79.84 Long term (current) use of oral hypoglycemic drugs
CPT/HCPCS: 99283

== ENCOUNTER 2020-11-07 23:48 | Emergency (ER) | payer OTHER ==
[~2020-11-07] VITALS: Ht 172.7 cm; Wt 82.7 kg
[2020-11-07 23:53] VITALS: BP 151/90
== END 2020-11-08 00:03 | disposition left against medical advice (07) ==
LOC: EMS 23:53
DX: M25.511 Pain in right shoulder (principal); Z53.21 Procedure and treatment not carried out due to patient leaving prior to being seen by health care provider

== ENCOUNTER 2021-01-29 16:52 | Emergency (ER) | payer OTHER ==
[~2021-01-29] VITALS: Ht 172.7 cm; Wt 81.8 kg
[~2021-01-29 16:52] MED LIST changes: +METF-1211 PO; -METF-960 PO
[2021-01-29 17:12] VITALS: BP 114/89
[2021-01-29 17:17] LABS: GLUCOSE,POINT OF CARE 407 MG/DL (70-110)
== END 2021-01-29 20:28 | disposition left against medical advice (07) ==
LOC: EMS 20:28
DX: R69 Illness, unspecified (principal); Z53.21 Procedure and treatment not carried out due to patient leaving prior to being seen by health care provider
CPT/HCPCS: 82962

== ENCOUNTER 2021-02-27 18:22 | Emergency (ER) | payer OTHER ==
[~2021-02-27] VITALS: Ht 172.7 cm; Wt 82.7 kg
[~2021-02-27 18:22] MED LIST changes: -PRED20TA3 PO
[2021-02-27 19:13] LABS: BASOPHILS % (AUTO) 0.9 % (0.0-2.0); EOSINOPHILS % (AUTO) 3.5 % (1.0-6.0); HEMATOCRIT 44.3 % (41-53); HEMOGLOBIN 14.9 g/dL (13.5-17.5); LYMPHOCYTES % (AUTO) 9.8 % (22.0-44.0); MEAN CORPUSCULAR HEMOGLOBIN 29.5 pg (26.0-34.0); MEAN CORPUSCULAR HGB CONC 33.6 G/dL (31.0-37.0); MEAN CORPUSCULAR VOLUME 88 fL (80-100); MONOCYTES # (AUTO) 0.8 K/uL (0.1-1.0); MONOCYTES % (AUTO) 8.3 % (2.0-9.0); NEUTROPHILS # (AUTO) 7.7 K/uL (1.8-7.7); NEUTROPHILS % (AUTO) 77.5 % (40.0-70.0); PLATELET COUNT (AUTO) 184 K/uL (150-450); RED BLOOD CELL COUNT(AUTO) 5.04 MIL/uL (4.50-5.90); RED CELL DISTRIBUTION WIDTH 14.3 % (11.5-14.5)
[2021-02-27 19:25] LABS: B-TYPE NATRIURETIC PEPTIDE 595 pg/mL (0-100)
[2021-02-27 19:26] LABS: ANION GAP 5 mmol/L (8-16); CARBON DIOXIDE 27 mmol/L (22-29); CHLORIDE 101 mmol/L (98-107); CREATININE 1.43 mg/dL (0.60-1.30); GLOMERULAR FILTR. RATE CALC 51 mL/min (>60); GLUCOSE,RANDOM 344 mg/dL (70-110); POTASSIUM 4.1 mmol/L (3.5-5.1); SODIUM SERUM 133 mmol/L (136-145); UREA NITROGEN, BLOOD 17 mg/dL (7-18)
[2021-02-27 19:31] LABS: ALANINE AMINOTRANSFERASE 36 U/L (12-78); ALBUMIN 3.3 g/dL (3.4-5.0); ALKALINE PHOSPHATASE 119 U/L (46-116); ASPARTATE AMINOTRANSFERASE 15 U/L (15-37); BILIRUBIN,TOTAL 0.4 mg/dL (0.1-1.0); LIPASE 189 U/L (73-393); TOTAL PROTEIN, SERUM 6.8 g/dL (6.4-8.2)
[2021-02-27 20:37] VITALS: BP 126/75
== END 2021-02-27 20:32 | disposition left against medical advice (07) ==
LOC: EMS 18:30
DX: J40 Bronchitis, not specified as acute or chronic (principal); I10 Essential (primary) hypertension; E11.9 Type 2 diabetes mellitus without complications; E78.00 Pure hypercholesterolemia, unspecified; I25.2 Old myocardial infarction; F17.210 Nicotine dependence, cigarettes, uncomplicated; Z79.899 Other long term (current) drug therapy; Z79.84 Long term (current) use of oral hypoglycemic drugs; Z79.4 Long term (current) use of insulin
CPT/HCPCS: 80053; 82962; 83690; 83880; 84484; 85025; 99283; G0480

== ENCOUNTER 2021-07-03 01:25 | Inpatient (IN) | payer OTHER ==
[~2021-07-03] VITALS: Ht 172.7 cm; Wt 86.3 kg
[2021-07-03] MEDS ORDERED: INSULIN REGULAR, HUMAN 100 UNITS/ML IVP ONE (02:00)
[2021-07-03] MEDS ORDERED: SODIUM CHLORIDE 0.9% 500 ML IV ONE (02:00)
[2021-07-03] MEDS ORDERED: ONDANSETRON HCL 4 MG/2 ML VIAL IVP ONE (02:45)
[2021-07-03 02:51] LABS: BASOPHILS % (AUTO) 1.3 % (0.0-2.0); EOSINOPHILS % (AUTO) 1.7 % (1.0-6.0); HEMATOCRIT 50.6 % (41-53); HEMOGLOBIN 16.8 g/dL (13.5-17.5); LYMPHOCYTES # (AUTO) 1.5 K/uL (1.0-4.8); LYMPHOCYTES % (AUTO) 19.3 % (22.0-44.0); MEAN CORPUSCULAR HEMOGLOBIN 29.7 pg (26.0-34.0); MEAN CORPUSCULAR HGB CONC 33.2 G/dL (31.0-37.0); MEAN CORPUSCULAR VOLUME 90 fL (80-100); MONOCYTES # (AUTO) 0.8 K/uL (0.1-1.0); MONOCYTES % (AUTO) 9.6 % (2.0-9.0); NEUTROPHILS # (AUTO) 5.5 K/uL (1.8-7.7); NEUTROPHILS % (AUTO) 68.1 % (40.0-70.0); PLATELET COUNT (AUTO) 199 K/uL (150-450); RED BLOOD CELL COUNT(AUTO) 5.65 MIL/uL (4.50-5.90); RED CELL DISTRIBUTION WIDTH 14.8 % (11.5-14.5)
[2021-07-03 02:54] LABS: CALCIUM, TOTAL 9.2 mg/dL (8.8-10.5); CREATININE 1.64 mg/dL (0.60-1.30); POTASSIUM 4.5 mmol/L (3.5-5.1)
[2021-07-03 02:59] LABS: ALBUMIN 3.3 g/dL (3.4-5.0); BILIRUBIN,TOTAL 0.6 mg/dL (0.1-1.0); TOTAL PROTEIN, SERUM 7.2 g/dL (6.4-8.2)
[2021-07-03 03:01] LABS: INR 1.1 (0.9-1.1); PROTHROMBIN TIME 11.9 SEC (9.4-11.6)
[2021-07-03] MEDS ORDERED: NITROGLYCERIN 2% (1 GM=INCH) PACKET TP ONE (04:00)
[2021-07-03] MEDS ORDERED: FUROSEMIDE 20 MG/2 ML VIAL IVP ONE (04:00)
[2021-07-03 04:20] LABS: COVID AG,FIA SOURCE NASOPHARYNGEAL
[2021-07-03] MEDS ORDERED: ACETAMINOPHEN 325 MG TABLET PO PRN ×2 (05:15→06:45)
[2021-07-03] MEDS ORDERED: ONDANSETRON HCL 4 MG/2 ML VIAL IVP PRN ×2 (05:15→06:45)
[2021-07-03] MEDS ORDERED: 0.9% SODIUM CHLORIDE 10 ML SYRINGE IVP PRN (05:15)
[2021-07-03 05:38] VITALS: BP 128/87
[2021-07-03 05:46] LABS: APPEARANCE,URINE CLEAR (CLEAR); BILIRUBIN,URINE NEGATIVE (NEGATIVE); GLUCOSE, URINE (UA) 300-500 mg/dL (NEGATIVE); KETONES,URINE NEGATIVE (NEGATIVE); LEUKOCYTE ESTERASE ,URINE NEGATIVE (NEGATIVE); NITRATE,URINE NEGATIVE (NEGATIVE); OCCULT BLOOD,URINE NEGATIVE (NEGATIVE); PROTEIN,URINE 30-70 mg/dL (NEGATIVE); SPECIFIC GRAVITIY, URINE 1.014 (1.003-1.030); UROBILINOGEN,URINE <=1.0 mg/dL (<=1.0)
[2021-07-03 05:59] LABS: BACTERIA,URINE None Seen /HPF (None Seen); RBC,URINE 0-2 /HPF (0-2); WBC,URINE 0-2 /HPF (0-5)
[2021-07-03] MEDS ORDERED: DEXTROSE 50%-WATER 25 GM/50 ML SYRINGE IVP PRN (06:45)
[2021-07-03] MEDS ORDERED: MAGNESIUM HYDROXIDE SUSPENSION 30 ML UDCUP PO PRN (06:45)
[2021-07-03] MEDS ORDERED: MORPHINE SULFATE 2 MG/ML SYRINGE IVP PRN (06:45)
[2021-07-03] MEDS ORDERED: BISACODYL 10 MG RECTAL RECTAL SUPPOSITORY PR PRN (06:45)
[2021-07-03] MEDS ORDERED: HYDROCODONE/ACETAMINOPHEN 5-325 MG TABLET PO PRN (06:45)
[2021-07-03] MEDS: INSULIN LISPRO 100 UNITS/ML SQ PRN ×4 (07:00→22:11)
[2021-07-03] MEDS ORDERED: PNEUMOCOCCAL VACCINE POLYVALENT 0.5 ML VIAL [PPSV23] IM. ONE (07:15)
[2021-07-03] MEDS: CLOPIDOGREL BISULFATE 75 MG TABLET PO SCH (08:58)
[2021-07-03] MEDS: MethylPREDNISolone SOD SUCC 40 MG/ML VIAL IVP SCH ×2 (08:58→16:14)
[2021-07-03] MEDS: ASPIRIN 81 MG DR TABLET PO SCH (08:58)
[2021-07-03] MEDS: DOCUSATE SODIUM 100 MG CAPSULE PO SCH ×2 (08:58→21:32)
[2021-07-03] MEDS: HEPARIN SODIUM,PORCINE 5,000 UNITS/ML VIAL SQ SCH ×2 (08:58→16:14)
[2021-07-03] MEDS: PANTOPRAZOLE SODIUM 40 MG DR TABLET PO SCH (09:00)
[2021-07-03 09:19] VITALS: BP 129/91
[2021-07-03 09:41] LABS: GLUCOMETER DEV NAME(LOC) 5N.1C; GLUCOSE,POINT OF CARE 270 MG/DL (70-110)
[2021-07-03] MEDS: CARVEDILOL 3.125 MG TABLET PO SCH ×2 (11:29→21:33)
[2021-07-03 12:18] VITALS: BP 121/71
[2021-07-03 16:47] VITALS: BP 128/68
[2021-07-03] MEDS ORDERED: ALBU8HFA IH (17:35)
[2021-07-03] MEDS ORDERED: LISI10TA24 PO (17:35)
[2021-07-03 19:50] VITALS: BP 127/82
[2021-07-03] MEDS ORDERED: HEPARIN SODIUM,PORCINE 5,000 UNITS/ML VIAL IVP PRN ×2 (20:15)
[2021-07-03] MEDS ORDERED: HEPARIN SODIUM,PORCINE 5,000 UNITS/ML VIAL IVP ONE (20:15)
[2021-07-03 20:22] LABS: BASOPHILS % (AUTO) 0.6 % (0.0-2.0); EOSINOPHILS % (AUTO) 0.1 % (1.0-6.0); HEMATOCRIT 46.5 % (41-53); HEMOGLOBIN 15.5 g/dL (13.5-17.5); LYMPHOCYTES # (AUTO) 0.5 K/uL (1.0-4.8); LYMPHOCYTES % (AUTO) 8.6 % (22.0-44.0); MEAN CORPUSCULAR HEMOGLOBIN 29.5 pg (26.0-34.0); MEAN CORPUSCULAR HGB CONC 33.3 G/dL (31.0-37.0); MEAN CORPUSCULAR VOLUME 89 fL (80-100); MONOCYTES # (AUTO) 0.1 K/uL (0.1-1.0); MONOCYTES % (AUTO) 1.1 % (2.0-9.0); NEUTROPHILS # (AUTO) 5.4 K/uL (1.8-7.7); NEUTROPHILS % (AUTO) 89.6 % (40.0-70.0); PLATELET COUNT (AUTO) 185 K/uL (150-450); RED BLOOD CELL COUNT(AUTO) 5.25 MIL/uL (4.50-5.90); RED CELL DISTRIBUTION WIDTH 14.5 % (11.5-14.5)
[2021-07-03 20:37] LABS: INR 1.1 (0.9-1.1); PLATELET MORPHOLOGY COMMENT GIANT PLTS PRESENT; PROTHROMBIN TIME 12.1 SEC (9.4-11.6)
[2021-07-03] MEDS ORDERED: INSULIN GLARGINE,HUM.REC.ANLOG 100 UNITS/ML SQ SCH (21:00)
[2021-07-03] MEDS ORDERED: ATENOLOL 25 MG TABLET PO SCH (21:00)
[2021-07-03] MEDS: ATORVASTATIN CALCIUM 40 MG TABLET PO SCH (21:32)
[2021-07-03] MEDS: FUROSEMIDE 20 MG/2 ML VIAL IVP SCH (21:33)
[2021-07-03] MEDS: HEPARIN SODIUM 25000 UNITS/D5W 250 ML IV PRN (21:56)
[2021-07-03] MEDS: BENZONATATE 100 MG CAPSULE PO PRN (22:06)
[2021-07-03 23:07] LABS: AMPHET/METH SCREEN,URINE POSITIVE (NEGATIVE); BARBITURATE SCREEN, URINE NEGATIVE (NEGATIVE); BENZODIAZEPINES SCREEN,URINE NEGATIVE (NEGATIVE); CANNABINOID SCREEN,URINE NEGATIVE (NEGATIVE); COCAINE SCREEN,URINE NEGATIVE (NEGATIVE); METHADONE SCREEN, URINE NEGATIVE (NEGATIVE); OPIATE SCREEN,URINE NEGATIVE (NEGATIVE)
[2021-07-03 23:09] LABS: PHENCYCLIDINE SCREEN,URINE NEGATIVE (NEGATIVE)
[2021-07-03 23:39] VITALS: BP 136/81
[2021-07-04] MEDS: MethylPREDNISolone SOD SUCC 40 MG/ML VIAL IVP SCH ×5 (00:20→23:33)
[2021-07-04 04:18] VITALS: BP 133/80
[2021-07-04] MEDS: INSULIN LISPRO 100 UNITS/ML SQ PRN ×4 (06:47→20:23)
[2021-07-04 07:53] LABS: BASOPHILS % (AUTO) 0.4 % (0.0-2.0); EOSINOPHILS % (AUTO) 0 % (1.0-6.0); HEMATOCRIT 47.1 % (41-53); HEMOGLOBIN 15.8 g/dL (13.5-17.5); LYMPHOCYTES # (AUTO) 0.6 K/uL (1.0-4.8); LYMPHOCYTES % (AUTO) 5.9 % (22.0-44.0); MEAN CORPUSCULAR HEMOGLOBIN 29.7 pg (26.0-34.0); MEAN CORPUSCULAR HGB CONC 33.4 G/dL (31.0-37.0); MEAN CORPUSCULAR VOLUME 89 fL (80-100); MONOCYTES # (AUTO) 0.7 K/uL (0.1-1.0); MONOCYTES % (AUTO) 6.3 % (2.0-9.0); NEUTROPHILS # (AUTO) 9.7 K/uL (1.8-7.7); PLATELET COUNT (AUTO) 206 K/uL (150-450); RED CELL DISTRIBUTION WIDTH 14.3 % (11.5-14.5)
[2021-07-04 07:54] LABS: CALCIUM, TOTAL 8.8 mg/dL (8.8-10.5); CREATININE 1.54 mg/dL (0.60-1.30)
[2021-07-04 08:00] LABS: NEUTROPHILS % (AUTO) 87.4 % (40.0-70.0)
[2021-07-04 08:21] LABS: GLUCOMETER DEV NAME(LOC) 5S.2B; GLUCOSE,POINT OF CARE 377 MG/DL (70-110)
[2021-07-04 08:21] LABS: GLUCOMETER DEV NAME(LOC) 5S.2B; GLUCOSE,POINT OF CARE 336 MG/DL (70-110)
[2021-07-04 08:26] LABS: GLUCOMETER DEV NAME(LOC) 5S.2B; GLUCOSE,POINT OF CARE 404 MG/DL (70-110)
[2021-07-04 08:26] LABS: GLUCOMETER DEV NAME(LOC) 5N.1C; GLUCOSE,POINT OF CARE 365 MG/DL (70-110)
[2021-07-04] MEDS: CARVEDILOL 3.125 MG TABLET PO SCH ×2 (08:58→20:17)
[2021-07-04] MEDS: FUROSEMIDE 20 MG/2 ML VIAL IVP SCH ×2 (08:58→20:16)
[2021-07-04] MEDS: DOCUSATE SODIUM 100 MG CAPSULE PO SCH ×2 (08:58→20:15)
[2021-07-04] MEDS: PANTOPRAZOLE SODIUM 40 MG DR TABLET PO SCH (08:58)
[2021-07-04] MEDS: CLOPIDOGREL BISULFATE 75 MG TABLET PO SCH (09:24)
[2021-07-04] MEDS: BENZONATATE 100 MG CAPSULE PO PRN (09:25)
[2021-07-04] MEDS: ASPIRIN 81 MG DR TABLET PO SCH (09:25)
[2021-07-04 10:07] VITALS: BP 121/74
[2021-07-04] MEDS ORDERED: GLUCAGON,HUMAN RECOMBINANT 1 MG VIAL IM PRN (12:00)
[2021-07-04] MEDS ORDERED: INSULIN LISPRO 100 UNITS/ML SQ PRN (12:00)
[2021-07-04] MEDS ORDERED: DEXTROSE 50%-WATER 25 GM/50 ML SYRINGE IVP PRN (12:00)
[2021-07-04] MEDS: INSULIN GLARGINE,HUM.REC.ANLOG 100 UNITS/ML SQ SCH ×2 (12:02→20:22)
[2021-07-04 13:26] LABS: GLUCOMETER DEV NAME(LOC) 5N.1C; GLUCOSE,POINT OF CARE 409 MG/DL (70-110)
[2021-07-04 15:17] VITALS: BP 143/70
[2021-07-04 17:51] LABS: GLUCOMETER DEV NAME(LOC) 5S.2B; GLUCOSE,POINT OF CARE 368 MG/DL (70-110)
[2021-07-04 19:37] VITALS: BP 123/86
[2021-07-04] MEDS: ATORVASTATIN CALCIUM 40 MG TABLET PO SCH (20:15)
[2021-07-04 23:40] VITALS: BP 118/75
[2021-07-05] MEDS: ZOLPIDEM TARTRATE 5 MG TABLET PO PRN (01:44)
[2021-07-05 01:46] LABS: GLUCOMETER DEV NAME(LOC) 5N.1C; GLUCOSE,POINT OF CARE 266 MG/DL (70-110)
[2021-07-05 05:58] VITALS: BP 126/78
[2021-07-05] MEDS: INSULIN LISPRO 100 UNITS/ML SQ PRN ×4 (06:07→20:51)
[2021-07-05] MEDS ORDERED: PERFLUTREN PROTEIN-A MICROSPHERES 0.22 MG/ML 3 ML VIAL IVP ONE (07:30)
[2021-07-05 07:40] VITALS: BP 128/83
[2021-07-05] MEDS: FUROSEMIDE 20 MG/2 ML VIAL IVP SCH ×2 (08:16→20:47)
[2021-07-05] MEDS: MethylPREDNISolone SOD SUCC 40 MG/ML VIAL IVP SCH (08:16)
[2021-07-05] MEDS: DOCUSATE SODIUM 100 MG CAPSULE PO SCH ×2 (08:17→20:47)
[2021-07-05] MEDS: CARVEDILOL 3.125 MG TABLET PO SCH ×2 (08:17→20:47)
[2021-07-05] MEDS: BENZONATATE 100 MG CAPSULE PO PRN ×2 (08:17→20:53)
[2021-07-05] MEDS: PANTOPRAZOLE SODIUM 40 MG DR TABLET PO SCH (08:17)
[2021-07-05] MEDS: ASPIRIN 81 MG DR TABLET PO SCH (08:17)
[2021-07-05] MEDS: LOSARTAN POTASSIUM 25 MG TABLET PO SCH (08:27)
[2021-07-05] MEDS: INSULIN GLARGINE,HUM.REC.ANLOG 100 UNITS/ML SQ SCH ×2 (08:28→20:51)
[2021-07-05 11:15] VITALS: BP 127/79
[2021-07-05] MEDS ORDERED: DOCUSATE SODIUM 100 MG CAPSULE PO SCH (12:15)
[2021-07-05 16:04] VITALS: BP 154/95
[2021-07-05] MEDS ORDERED: WARFARIN SODIUM 7.5 MG TABLET PO STA (18:23)
[2021-07-05 19:11] VITALS: BP 131/72
[2021-07-05 20:21] LABS: GLUCOMETER DEV NAME(LOC) 5N.1C; GLUCOSE,POINT OF CARE 321 MG/DL (70-110)
[2021-07-05] MEDS: ATORVASTATIN CALCIUM 40 MG TABLET PO SCH (20:47)
[2021-07-06] MEDS: HEPARIN SODIUM 25000 UNITS/D5W 250 ML IV PRN (01:36)
[2021-07-06 02:01] LABS: GLUCOMETER DEV NAME(LOC) 5S.2B; GLUCOSE,POINT OF CARE 470 MG/DL (70-110)
[2021-07-06 02:01] LABS: GLUCOMETER DEV NAME(LOC) 5S.2B; GLUCOSE,POINT OF CARE 465 MG/DL (70-110)
[2021-07-06] MEDS: INSULIN LISPRO 100 UNITS/ML SQ PRN ×4 (04:59→20:12)
[2021-07-06 05:14] VITALS: BP 131/93
[2021-07-06 07:07] VITALS: BP 134/82
[2021-07-06] MEDS: INSULIN GLARGINE,HUM.REC.ANLOG 100 UNITS/ML SQ SCH ×2 (08:39→20:11)
[2021-07-06] MEDS: PANTOPRAZOLE SODIUM 40 MG DR TABLET PO SCH (08:51)
[2021-07-06] MEDS: LOSARTAN POTASSIUM 25 MG TABLET PO SCH (08:52)
[2021-07-06] MEDS: CARVEDILOL 3.125 MG TABLET PO SCH ×2 (08:52→20:13)
[2021-07-06] MEDS: ASPIRIN 81 MG DR TABLET PO SCH (08:52)
[2021-07-06] MEDS: FUROSEMIDE 20 MG/2 ML VIAL IVP SCH (08:53)
[2021-07-06] MEDS: DOCUSATE SODIUM 100 MG CAPSULE PO SCH ×2 (08:54→20:13)
[2021-07-06 08:55] LABS: BASOPHILS % (AUTO) 0.5 % (0.0-2.0); EOSINOPHILS % (AUTO) 0.2 % (1.0-6.0); HEMATOCRIT 51.2 % (41-53); HEMOGLOBIN 17.3 g/dL (13.5-17.5); LYMPHOCYTES # (AUTO) 1.3 K/uL (1.0-4.8); LYMPHOCYTES % (AUTO) 9.5 % (22.0-44.0); MEAN CORPUSCULAR HEMOGLOBIN 29.7 pg (26.0-34.0); MEAN CORPUSCULAR HGB CONC 33.8 G/dL (31.0-37.0); MEAN CORPUSCULAR VOLUME 88 fL (80-100); MONOCYTES # (AUTO) 1.1 K/uL (0.1-1.0); NEUTROPHILS # (AUTO) 11.4 K/uL (1.8-7.7); NEUTROPHILS % (AUTO) 81.8 % (40.0-70.0); PLATELET COUNT (AUTO) 204 K/uL (150-450); RED BLOOD CELL COUNT(AUTO) 5.83 MIL/uL (4.50-5.90); RED CELL DISTRIBUTION WIDTH 14.5 % (11.5-14.5)
[2021-07-06 09:24] LABS: INR 1.3 (0.9-1.1); PROTHROMBIN TIME 13.3 SEC (9.4-11.6)
[2021-07-06 11:00] VITALS: BP 132/86
[2021-07-06 12:56] LABS: GLUCOMETER DEV NAME(LOC) 5S.2B; GLUCOSE,POINT OF CARE 291 MG/DL (70-110)
[2021-07-06 12:56] LABS: GLUCOMETER DEV NAME(LOC) 5S.2B; GLUCOSE,POINT OF CARE 229 MG/DL (70-110)
[2021-07-06 15:21] VITALS: BP 117/73
[2021-07-06] MEDS ORDERED: FUROSEMIDE 40 MG TABLET PO ONE (16:30)
[2021-07-06] MEDS: BENZONATATE 100 MG CAPSULE PO PRN ×2 (16:57→21:15)
[2021-07-06] MEDS ORDERED: WARFARIN SODIUM 5 MG TABLET PO SCH (17:00)
[2021-07-06 18:51] LABS: GLUCOMETER DEV NAME(LOC) 5N.1C; GLUCOSE,POINT OF CARE 215 MG/DL (70-110)
[2021-07-06 19:42] VITALS: BP 121/78
[2021-07-06] MEDS: ATORVASTATIN CALCIUM 40 MG TABLET PO SCH (20:13)
[2021-07-06] MEDS: ALBUTEROL SULFATE HFA 90 MCG/PUFF 8 GM INHALER IH PRN (21:12)
[2021-07-06] MEDS: ZOLPIDEM TARTRATE 5 MG TABLET PO PRN (23:27)
[2021-07-06 23:41] VITALS: BP 132/87
[2021-07-07 04:40] VITALS: BP 122/76
[2021-07-07] MEDS: INSULIN LISPRO 100 UNITS/ML SQ PRN ×2 (05:50→11:59)
[2021-07-07 05:56] LABS: GLUCOMETER DEV NAME(LOC) 5N.1C; GLUCOSE,POINT OF CARE 246 MG/DL (70-110)
[2021-07-07] MEDS: HEPARIN SODIUM 25000 UNITS/D5W 250 ML IV PRN (06:10)
[2021-07-07 07:22] LABS: BASOPHILS % (AUTO) 0.7 % (0.0-2.0); LYMPHOCYTES # (AUTO) 2.1 K/uL (1.0-4.8); LYMPHOCYTES % (AUTO) 22.7 % (22.0-44.0); MEAN CORPUSCULAR HEMOGLOBIN 29.5 pg (26.0-34.0); MEAN CORPUSCULAR HGB CONC 33.6 G/dL (31.0-37.0); MEAN CORPUSCULAR VOLUME 88 fL (80-100); MONOCYTES # (AUTO) 1.1 K/uL (0.1-1.0); MONOCYTES % (AUTO) 12.1 % (2.0-9.0); NEUTROPHILS # (AUTO) 5.8 K/uL (1.8-7.7); NEUTROPHILS % (AUTO) 62.5 % (40.0-70.0); PLATELET COUNT (AUTO) 223 K/uL (150-450); RED BLOOD CELL COUNT(AUTO) 6.46 MIL/uL (4.50-5.90); RED CELL DISTRIBUTION WIDTH 14.6 % (11.5-14.5)
[2021-07-07 07:41] LABS: HEMATOCRIT 56.7 % (41-53)
[2021-07-07 07:53] LABS: INR 2.6 (0.9-1.1); PROTHROMBIN TIME 26.4 SEC (9.4-11.6)
[2021-07-07 07:59] VITALS: BP 135/85
[2021-07-07] MEDS: PANTOPRAZOLE SODIUM 40 MG DR TABLET PO SCH (08:19)
[2021-07-07] MEDS: INSULIN GLARGINE,HUM.REC.ANLOG 100 UNITS/ML SQ SCH (08:23)
[2021-07-07] MEDS: DOCUSATE SODIUM 100 MG CAPSULE PO SCH (08:24)
[2021-07-07] MEDS: ASPIRIN 81 MG DR TABLET PO SCH (08:24)
[2021-07-07] MEDS: CARVEDILOL 3.125 MG TABLET PO SCH (08:24)
[2021-07-07] MEDS: ALBUTEROL SULFATE HFA 90 MCG/PUFF 8 GM INHALER IH PRN (08:25)
[2021-07-07] MEDS: LOSARTAN POTASSIUM 25 MG TABLET PO SCH (08:26)
[2021-07-07] MEDS ORDERED: FUROSEMIDE 40 MG TABLET PO SCH (09:00)
[2021-07-07 11:17] VITALS: BP 127/82
[2021-07-07 12:02] LABS: GLUCOMETER DEV NAME(LOC) 5S.2B; GLUCOSE,POINT OF CARE 263 MG/DL (70-110)
[2021-07-07 14:00] LABS: GLUCOMETER DEV NAME(LOC) 5N.3; GLUCOSE,POINT OF CARE 169 MG/DL (70-110)
[2021-07-07 14:01] LABS: GLUCOMETER DEV NAME(LOC) 5N.3; GLUCOSE,POINT OF CARE 253 MG/DL (70-110)
[2021-07-07] MEDS ORDERED: WARFARIN SODIUM 2.5 MG TABLET PO SCH (17:00)
== END 2021-07-07 14:05 | disposition home or self-care (01) | DRG 194 ==
LOC: EMS 01:28 → 5S 05:37
PROVIDERS: ADMIT Internal Medicine; ATTEND Internal Medicine
DX: I13.0 Hypertensive heart and chronic kidney disease with heart failure and stage 1 through stage 4 chronic kidney disease, or unspecified chronic kidney disease (principal); N17.9 Acute kidney failure, unspecified; I51.3 Intracardiac thrombosis, not elsewhere classified; J44.1 Chronic obstructive pulmonary disease with (acute) exacerbation; I50.23 Acute on chronic systolic (congestive) heart failure; I25.10 Atherosclerotic heart disease of native coronary artery without angina pectoris; I25.5 Ischemic cardiomyopathy; F17.200 Nicotine dependence, unspecified, uncomplicated; L80 Vitiligo; F15.10 Other stimulant abuse, uncomplicated; E78.5 Hyperlipidemia, unspecified; E11.65 Type 2 diabetes mellitus with hyperglycemia; E78.00 Pure hypercholesterolemia, unspecified; M10.9 Gout, unspecified; M79.89 Other specified soft tissue disorders; F19.10 Other psychoactive substance abuse, uncomplicated; Z20.822 Contact with and (suspected) exposure to COVID-19; N18.30 Chronic kidney disease, stage 3 unspecified; K21.9 Gastro-esophageal reflux disease without esophagitis; Z91.19 Patient's noncompliance with other medical treatment and regimen; Z95.5 Presence of coronary angioplasty implant and graft; Z79.4 Long term (current) use of insulin; Z79.82 Long term (current) use of aspirin
CPT/HCPCS: 71045; 80048; 80053; 80307; 81001; 81003; 82271; 82962; 83880; 84484; 85025; 85610; 85730; 93005; 93306; 99285; C8924; J1644; J1815; J1940; J2405; J2920; J3535; J7040; Q9967; 36415-L1; 36415-TC

== ENCOUNTER 2021-07-08 04:21 | Emergency (ER) | payer OTHER ==
[~2021-07-08] VITALS: Ht 172.7 cm; Wt 83.0 kg
[~2021-07-08 04:21] MED LIST changes: +ALBU8HFA IH; -ALBU8HFA PO; -ATEN-73 PO; -CLOP75TA60 PO; -IBUP-2070 PO; -INSLAN SQ; -METF-1211 PO
[2021-07-08 04:30] VITALS: BP 131/85
[2021-07-08 04:46] LABS: GLUCOSE,POINT OF CARE 243 MG/DL (70-110)
== END 2021-07-08 05:31 | disposition home or self-care (01) ==
LOC: EMS 04:22
DX: E11.65 Type 2 diabetes mellitus with hyperglycemia (principal); I10 Essential (primary) hypertension; E78.00 Pure hypercholesterolemia, unspecified; I25.2 Old myocardial infarction; Z79.899 Other long term (current) drug therapy; F17.210 Nicotine dependence, cigarettes, uncomplicated
CPT/HCPCS: 82962; 99282

== ENCOUNTER 2021-07-15 14:43 | Emergency (ER) | payer OTHER ==
[~2021-07-15] VITALS: Ht 172.7 cm; Wt 81.0 kg
[2021-07-15 14:48] VITALS: BP 144/100
== END 2021-07-15 15:48 | disposition left against medical advice (07) ==
LOC: EMS 14:45
DX: M25.511 Pain in right shoulder (principal); Z53.21 Procedure and treatment not carried out due to patient leaving prior to being seen by health care provider

== ENCOUNTER 2021-07-23 05:15 | Emergency (ER) | payer OTHER ==
[~2021-07-23] VITALS: Ht 172.7 cm; Wt 72.7 kg
[2021-07-23] MEDS ORDERED: ACETAMINOPHEN/CODEINE 300-30 MG TABLET PO ONE (06:45)
[2021-07-23] MEDS ORDERED: KETOROLAC TROMETHAMINE 60 MG/2 ML VIAL IM ONE (06:45)
[2021-07-23] MEDS ORDERED: ACET-2080 PO (08:43)
[2021-07-23] MEDS ORDERED: IBUP-1554 PO (08:43)
[2021-07-23 08:45] VITALS: BP 128/84
[2021-07-25] MEDS ORDERED: ATEN-73 PO (06:50)
[2021-07-25] MEDS ORDERED: CLOP75TA60 PO (06:50)
[2021-07-25] MEDS ORDERED: LISI-893 PO (06:50)
[2021-07-25] MEDS ORDERED: INSLAN SQ (06:50)
[2021-07-25] MEDS ORDERED: METF-1211 PO (06:50)
== END 2021-07-23 09:05 | disposition home or self-care (01) ==
LOC: EMS 05:15
DX: M25.511 Pain in right shoulder (principal); I25.10 Atherosclerotic heart disease of native coronary artery without angina pectoris; E11.9 Type 2 diabetes mellitus without complications; I11.9 Hypertensive heart disease without heart failure; E78.00 Pure hypercholesterolemia, unspecified; I25.2 Old myocardial infarction; F12.90 Cannabis use, unspecified, uncomplicated
CPT/HCPCS: 73030; 82962; 96372; 99283; J1885; 29240

== ENCOUNTER 2021-07-27 18:22 | Emergency (ER) | payer OTHER ==
[~2021-07-27] VITALS: Ht 172.7 cm; Wt 70.5 kg
[~2021-07-27 18:22] MED LIST changes: +ACET-2080 PO; +ATEN-73 PO; +CLOP75TA60 PO; +INSLAN SQ; +LISI-893 PO; +METF-1211 PO
[2021-07-27 18:30] VITALS: BP 105/69
[2021-07-27] MEDS ORDERED: WARF2.5T38 PO (18:54)
[2021-07-27] MEDS ORDERED: ALBUTEROL SULFATE HFA 90 MCG/PUFF 8 GM INHALER IH ONE (19:00)
== END 2021-07-27 19:50 | disposition home or self-care (01) ==
LOC: EMS 18:37
DX: J45.909 Unspecified asthma, uncomplicated (principal); I11.0 Hypertensive heart disease with heart failure; I50.9 Heart failure, unspecified; I51.3 Intracardiac thrombosis, not elsewhere classified; I25.10 Atherosclerotic heart disease of native coronary artery without angina pectoris; M10.9 Gout, unspecified; L80 Vitiligo; F17.210 Nicotine dependence, cigarettes, uncomplicated; F15.90 Other stimulant use, unspecified, uncomplicated; Z87.39 Personal history of other diseases of the musculoskeletal system and connective tissue; Z86.79 Personal history of other diseases of the circulatory system; Z98.890 Other specified postprocedural states
CPT/HCPCS: 94640; 99283; J3535

== ENCOUNTER 2022-08-08 02:49 | Emergency (ER) | payer OTHER ==
[~2022-08-08] VITALS: Ht 172.7 cm; Wt 78.2 kg
[~2022-08-08 02:49] MED LIST changes: +ALBU18HF12 IH; -ALBU8HFA IH; +WARF2.5T38 PO
[2022-08-08 02:50] VITALS: BP 123/75
== END 2022-08-08 03:27 | disposition left against medical advice (07) ==
LOC: EMS 02:50
DX: Z76.0 Encounter for issue of repeat prescription (principal); Z53.21 Procedure and treatment not carried out due to patient leaving prior to being seen by health care provider
CPT/HCPCS: 99281; Z7502